=== PATIENT | female | born 1950 | race Hispanic/Latino ===

== ENCOUNTER 2019-03-16 12:32 | Emergency (ER) | payer MEDICARE ==
[2019-03-16 12:55] VITALS: BP 150/66
--- NOTE | 2019-03-16 13:01 | Emergency Department Report ---
Blank Doc - Documentation Documentation: 68-year-old female that presents with right foot pain. This initial assessment/diagnostic orders/clinical plan/treatment(s) is/are subject to change based on patient's health status, clinical progression and re- assessment by fellow clinical providers in the ED. Further treatment and workup at subsequent clinical providers discretion. Patient/guardians urged not to elope from the ED as their condition may be serious if not clinically assessed and managed. Initial orders include: 1- Patient sent to [facility] for further evaluation and treatment 2- XRays
--- NOTE | 2019-03-16 14:23 | XRay Report ---
RIGHT ANKLE, 3 VIEWS INDICATION: Right ankle pain and swelling after fall. COMPARISON: None. IMPRESSION: An oblique fracture of the distal fibula is identified just proximal to the ankle joint. Displacement at the fracture site measures 3-4 mm. The distal tibia and talar dome are intact. Small plantar spur is noted. There is diffuse soft tissue swelling. No significant DJD. Previous surgery involving the distal first metatarsal is noted. Signer Name: Nikita Broderick Jr, MD Signed: 03/16/2019 2:19 PM Workstation Name: [id number]
[2019-03-16] MEDS ORDERED: HYDROcodone/ACETAMINOPHEN 5-325 MG TAB PO ONE (15:05)
--- NOTE | 2019-03-16 15:17 | Emergency Department Report ---
ED Lower Extremity HPI - General Chief Complaint: Fall Stated Complaint: FALL Time Seen by Provider: 03/16/19 13:00 Source: patient Mode of arrival: Wheelchair Limitations: Physical Limitation - History of Present Illness Initial Comments: Mrs. Argueta is a 68-year-old female who injured her right ankle this morning. She slipped from a stool. She has swelling of the right ankle. No other associated injuries. MD Complaint: ankle injury -: Sudden, This morning Injury: Ankle: Right Place: home Severity: severe Severity scale (0 -10): 10 Improves With: nothing Worsens With: weight bearing, movement, palpation Context: fall - Related Data Home Medications Medication Instructions Recorded Confirmed Last Taken Diphenoxylate/Atropine [Lomotil] 07/29/13 07/29/13 Unknown Estradiol Micronized 07/29/13 07/29/13 Unknown Labetalol [Labetalol 100mg TAB] 07/29/13 07/29/13 Unknown Lisinopril [Zestril] 07/29/13 07/29/13 Unknown Pravastatin Sodium [Pravastatin] 07/29/13 07/29/13 Unknown Zolpidem [Ambien] 07/29/13 07/29/13 Unknown Previous Rx's Medication Instructions Recorded Last Taken Type HYDROcodone/APAP 5-325 [Mansura 1 each PO Q6HR PRN #20 tablet 07/29/13 Unknown Rx 5/325 mg] HYDROcodone/APAP 5-325 [Mansura 1 each PO Q6HR PRN #15 tablet 03/16/19 Unknown Rx 5/325] Allergies Allergy/AdvReac Type Severity Reaction Status Date / Time aspirin Allergy Shortness Verified 07/29/13 16:26 of Breath erythromycin base Allergy Rash Verified 07/29/13 16:26 [Erythromycin Base] iodine Allergy Rash Verified 07/29/13 16:26 Penicillins Allergy Unknown Verified 07/29/13 16:26 tetracycline [Tetracycline] Allergy Nausea Verified 07/29/13 16:26 ED Review of Systems ROS: Stated complaint: FALL Other details as noted in HPI Constitutional: denies: fever, malaise Respiratory: denies: shortness of breath Cardiovascular: denies: chest pain Gastrointestinal: denies: abdominal pain, nausea, vomiting Musculoskeletal: joint swelling, arthralgia Skin: denies: rash, lesions ED Past Medical Hx - Past Medical History Previous Medical History?: Yes Hx Hypertension: Yes Hx Kidney Stones: Yes Hx Psychiatric Treatment: Yes (depression) - Surgical History Past Surgical History?: Yes Additional Surgical History: Htysterectomy - Social History Smoking Status: Never Smoker Substance Use Type: None - Medications Home Medications: Home Medications Medication Instructions Recorded Confirmed Last Taken Type Diphenoxylate/Atropine [Lomotil] 07/29/13 07/29/13 Unknown History Estradiol Micronized 07/29/13 07/29/13 Unknown History HYDROcodone/APAP 5-325 [Mansura 1 each PO Q6HR PRN #20 tablet 07/29/13 Unknown Rx 5/325 mg] Labetalol [Labetalol 100mg TAB] 07/29/13 07/29/13 Unknown History Lisinopril [Zestril] 07/29/13 07/29/13 Unknown History Pravastatin Sodium [Pravastatin] 07/29/13 07/29/13 Unknown History Zolpidem [Ambien] 07/29/13 07/29/13 Unknown History HYDROcodone/APAP 5-325 [Mansura 1 each PO Q6HR PRN #15 tablet 03/16/19 Unknown Rx 5/325] ED Physical Exam - General Limitations: Physical Limitation General appearance: alert, in no apparent distress - Head Head exam: Present: atraumatic, normocephalic - Eye Eye exam: Present: normal appearance - ENT ENT exam: Present: mucous membranes moist - Neck Neck exam: Present: normal inspection - Respiratory Respiratory exam: Absent: respiratory distress - Expanded Lower Extremity Exam Right Knee exam: Present: normal inspection, full ROM. Absent: tenderness Lower Leg exam: Present: normal inspection, full ROM Ankle exam: Present: tenderness, swelling, deformity. Absent: crepidus, dislocation, erythema, anterior draw sign Foot/Toe exam: Present: normal inspection, full ROM. Absent: tenderness Neuro vascular tendon exam: Present: no vascular compromise - Neurological Exam Neurological exam: Present: alert, oriented X3 - Psychiatric Psychiatric exam: Present: normal affect, normal mood - Skin Skin exam: Present: warm, dry, intact, normal color. Absent: rash ED Course Vital Signs 03/16/19 12:36 Temperature 98.4 F Pulse Rate 64 Respiratory 16 Rate Blood Pressure 150/66 O2 Sat by Pulse 95 Oximetry ED Lower Extremity MDM - Radiology Data Radiology results: report reviewed Right ankle: Distal fibular fracture mild displacement - Medical Decision Making Close distal fibula fracture of the right ankle long posterior was applied to the affected extremity under my supervision. After application the extremity was neurovascularly intact with acceptable alignment. Crutches provided. Referred to orthopedic surgeon. Prescribed Mansura. Critical care attestation.: If time is entered above; I have spent that time in minutes in the direct care of this critically ill patient, excluding procedure time. ED Disposition Clinical Impression: Fracture of fibula, distal, right, closed Disposition: TO HOME OR SELFCARE Is pt being admited?: No Does the pt Need Aspirin: No Condition: Stable Instructions: Ankle Fracture (ED), Splint Care (ED) Prescriptions: HYDROcodone/APAP 5-325 [Mansura 5/325] 1 each PO Q6HR PRN #15 tablet PRN Reason: Pain Referrals: SHAWANDA AVILEZ MD [Staff Physician] - 3-5 Days
== END 2019-03-16 16:08 | disposition home or self-care (01) ==
LOC: ED 12:32
DX: S82.831A Other fracture of upper and lower end of right fibula, initial encounter for closed fracture (principal); I10 Essential (primary) hypertension; F32.9 Major depressive disorder, single episode, unspecified; Z98.890 Other specified postprocedural states; Z90.710 Acquired absence of both cervix and uterus; Z88.6 Allergy status to analgesic agent; Z88.1 Allergy status to other antibiotic agents; Z88.0 Allergy status to penicillin; Z88.8 Allergy status to other drugs, medicaments and biological substances; W01.0XXA Fall on same level from slipping, tripping and stumbling without subsequent striking against object, initial encounter; Y93.89 Activity, other specified; Y92.098 Other place in other non-institutional residence as the place of occurrence of the external cause; Y99.8 Other external cause status
CPT/HCPCS: 99283